=== PATIENT | male | born 1940 | race Caucasian/White ===

== ENCOUNTER 2016-12-07 17:27 | Inpatient (IN) | payer MEDICARE, MEDICAID ==
[~2016-12-07] VITALS: Ht 180.3 cm; Wt 110.7 kg
--- NOTE | 2016-12-07 17:40 | NUR ---
pt unable to give the list of medication, computer analyst supervisor and michael at intake do not have any report on the med list either.
--- NOTE | 2016-12-07 17:57 | NUR ---
called caregiver tali sumner at [phone] to get the medication list. no one picked up the phone. left message with hospital phone number.
[2016-12-07 18:09] LABS: BASOPHILS % (AUTO) 0.7 % (0.0-2.0); EOSINOPHILS # (AUTO) 0.1 K/uL (0.0-0.7); EOSINOPHILS % (AUTO) 0.9 % (0.0-7.0); HEMATOCRIT 39.6 % (40.0-50.0); HEMOGLOBIN 13.3 g/dL (14.0-18.0); LYMPHOCYTES # (AUTO) 0.8 K/uL (0.8-4.8); LYMPHOCYTES % (AUTO) 13.2 % (20.5-51.5); MEAN CORPUSCULAR HGB CONC 34 g/dL (32.0-37.0); MEAN CORPUSCULAR VOLUME 80.5 fL (82.0-92.0); MONOCYTES # (AUTO) 0.4 K/uL (0.1-1.30); MONOCYTES % (AUTO) 5.9 % (0.0-11.0); NEUTROPHILS # (AUTO) 5.1 K/uL (1.8-8.9); NEUTROPHILS % (AUTO) 79.3 % (38.5-71.5); PLATELET COUNT (AUTO) 203 K/uL (150-450); RED BLOOD CELL COUNT(AUTO) 4.92 MIL/uL (4.70-6.10); RED CELL DISTRIBUTION WIDTH 13.3 % (11.5-14.5); WHITE BLOOD COUNT (AUTO) 6.4 K/uL (4.0-11.2)
[2016-12-07 18:12] LABS: *BILIRUBIN,URIN NEGATIVE (NEGATIVE); *BLOOD, URINE NEGATIVE (NEGATIVE); *CLARITY,URINE CLEAR (CLEAR); *COLOR,URINE YELLOW (YELLOW); *KETONES,URINE TRACE (NEGATIVE); *PROTEIN,URINE TRACE (NEGATIVE); NITRITE, URINE NEGATIVE (NEGATIVE); UGLUCOSE NEGATIVE (NEGATIVE)
[2016-12-07 18:14] LABS: CALCIUM 8.8 mg/dL (8.5-10.1); CARBON DIOXIDE 32 mmol/L (21-32); CHLORIDE 103 mmol/L (98-107); CREATININE 1.1 mg/dL (0.6-1.3); GLUCOSE 113 mg/dL (74-106); POTASSIUM 3.7 mmol/L (3.5-5.1); SODIUM SERUM 142 mmol/L (136-145); UREA NITROGEN, BLOOD 21 mg/dL (7-18)
[2016-12-07 18:15] LABS: ETHANOL < 3 MG/DL (0-0)
[2016-12-07 18:20] LABS: *AMPHETAMINE, URINE NEGATIVE (NEGATIVE); *BARBITURATE, URINE NEGATIVE (NEGATIVE); *CANNABINOID, URINE NEGATIVE (NEGATIVE); *COCCAINE, URINE NEGATIVE (NEGATIVE); *OPIATE, URINE NEGATIVE (NEGATIVE); *PHENCYCLIDINE SCREEN,URINE NEGATIVE (NEGATIVE)
[2016-12-07 18:21] LABS: TROPONIN I < 0.017 ng/mL (0.00-0.056)
[2016-12-07 18:31] LABS: ALANINE AMINOTRANSFERASE 33 U/L (16-63); ALBUMIN 3.4 g/dL (3.4-5.0); ALKALINE PHOSPHATASE 105 U/L (50-136); ASPARTATE AMINOTRANSFERASE 21 U/L (15-37); BILIRUBIN,DIRECT < 0.1 mg/dL (0.0-0.2); BILIRUBIN,TOTAL 0.3 mg/dL (0.2-1.0); TOTAL PROTEIN, SERUM 7.3 g/dL (6.4-8.2)
[2016-12-07 18:31] LABS: LEUKOCYTE ESTERASE ,URINE TRACE (NEGATIVE)
[2016-12-07 18:32] LABS: ACETAMINOPHEN < 2.0 ug/mL (10-30)
[2016-12-07 18:33] LABS: MUCUS,URINE MODERATE /LPF (0-FEW); RBC,URINE 0-3 /HPF (0-3)
[2016-12-07 18:44] LABS: AMMONIA 10 umol/L (11-32)
[2016-12-07 18:51] LABS: LACTIC ACID 1.1 mmol/L (0.4-2.0)
[2016-12-07 19:11] LABS: THYROID STIMULATING HORMONE 2.698 mIU/mL (0.358-3.740)
--- NOTE | 2016-12-07 19:30 | NUR ---
Pt. admitted to [facility], under care of Dr. Jesus Belongs List completed
[2016-12-07 19:53] VITALS: BP 172/80
[2016-12-07 20:00] VITALS: BP 172/80
[2016-12-07] MEDS ORDERED: LORAZEPAM 1 MG TABLET PO PRN (20:15)
[2016-12-07] MEDS ORDERED: MAGNESIUM HYDROXIDE 30 ML LIQUID UDC PO PRN (20:15)
[2016-12-07] MEDS ORDERED: ACETAMINOPHEN 325 MG TABLET PO PRN (20:15)
[2016-12-07] MEDS ORDERED: MAG HYDROX/AL HYDROX/SIMETH 30 ML LIQUID UDC PO PRN (20:15)
[2016-12-07] MEDS ORDERED: TEMAZEPAM 7.5 MG CAPSULE PO PRN (20:15)
[2016-12-07 20:26] VITALS: BP 172/80
--- NOTE | 2016-12-07 21:00 | NUR ---
GPS: 76 YEAR MALE ADMITTED TO MHU ROOM 137B FROM ER. DX 5150/GD. A/O X3 AMBULATORY CALM AND COOPERATIVE. B/P 172/80 PULSE 81 RESP 18 SAT 93 % IN ROOM AIR. NOTIFIED VIA PHONE. RECEIVED ORDER FOR METOPROLOL 25 MG AND HYDROCHLOROTHIAZIDE 12.5 MG PO@ 22:30 PM. MEDICATION GIVEN ORDERED.PATIENT STATED I AM HEAR TO CHECKOUT FBI. PATIENT IS PARANOID TALKING TO HIM GAYATHRI. BROTHER CAME WITH PATIENT AND PROVIDED INFORMATION. CONTINUE MONITORING FOR SAFETY.RECHECK B/P 165/85 PULSE 80. CONTINUE PLAN OF CARE.
[2016-12-07 21:38] VITALS: BP 165/84
[2016-12-07] MEDS: risperiDONE 1 MG TABLET PO SCH (22:13)
[2016-12-07] MEDS ORDERED: risperiDONE 1 MG TABLET ONE (22:14)
--- NOTE | 2016-12-07 22:15 | NUR ---
GPS: PATIENT C/O ANXIETY.ATIVAN 1 MG PO GIVEN PER PATIENT REQUESTED.
[2016-12-07] MEDS ORDERED: HYDROCHLOROTHIAZIDE 12.5 MG CAPSULE ONE (22:24)
[2016-12-07] MEDS ORDERED: METOPROLOL TARTRATE 25 MG TABLET ONE (22:25)
[2016-12-07] MEDS: HYDROCHLOROTHIAZIDE 12.5 MG CAPSULE PO SCH (22:31)
[2016-12-07] MEDS: METOPROLOL TARTRATE 25 MG TABLET PO SCH (22:32)
--- NOTE | 2016-12-07 23:15 | NUR ---
GPS: PATIENT STATED I AM FEELING BETTER NOW. PRN EFFECTIVE FOR ANXIETY.
[2016-12-07 23:30] VITALS: BP 138/77
--- NOTE | 2016-12-07 23:30 | NUR ---
GPS: PATIENT B/P NOW 138/78. METOPROLOL EFFECTIVE.
--- NOTE | 2016-12-08 06:44 | NUR ---
GPS: REMAIN CALM AND COOPERATIVE. SLEPT 8 HRS THROUGH THE NIGHT.NO BEHAVIOR PROBLEM NOTED.RESTING IN BED COMFORTABLY.
[2016-12-08 07:30] VITALS: BP 168/93
[2016-12-08] MEDS: risperiDONE 1 MG TABLET PO SCH ×2 (08:38→20:21)
[2016-12-08] MEDS: METOPROLOL TARTRATE 25 MG TABLET PO SCH ×2 (08:38→20:21)
[2016-12-08] MEDS: HYDROCHLOROTHIAZIDE 12.5 MG CAPSULE PO SCH ×2 (09:30→22:26)
[2016-12-08 16:00] VITALS: BP 157/87
[2016-12-08] MEDS ORDERED: AMLODIPINE 5 MG TABLET PO SCH (17:45)
[2016-12-08] MEDS ORDERED: AMLODIPINE 2.5 MG TABLET PO PRN (18:15)
[2016-12-08 20:00] VITALS: BP 160/88
[2016-12-08] MEDS: ATORVASTATIN 10 MG TABLET PO SCH (20:21)
[2016-12-08 21:30] VITALS: BP 143/95
[2016-12-09 04:00] VITALS: BP 141/89
--- NOTE | 2016-12-09 06:37 | NUR ---
GPS: REMAIN CALM AND COOPERATIVE. SLEPT 8 HRS THROUGH THE NIGHT. NO AGITATION NOTED THIS TIME.NO C/O PAIN OR DISCOMFORT.CONTINUE PLAN OF CARE.
[2016-12-09] MEDS ORDERED: RISP1TAB7 PO (07:10)
[2016-12-09] MEDS ORDERED: MELA1TAB10 PO (07:10)
[2016-12-09] MEDS ORDERED: METO-302 PO (07:10)
[2016-12-09] MEDS ORDERED: IPRA12.9 INH (07:10)
[2016-12-09] MEDS ORDERED: AMLO10TA2 PO (07:10)
[2016-12-09 07:30] VITALS: BP 140/89
[2016-12-09] MEDS: risperiDONE 1 MG TABLET PO SCH ×2 (08:00→20:11)
[2016-12-09] MEDS: METOPROLOL TARTRATE 25 MG TABLET PO SCH (08:00)
[2016-12-09] MEDS: HYDROCHLOROTHIAZIDE 12.5 MG CAPSULE PO SCH ×2 (09:38→21:35)
[2016-12-09] MEDS ORDERED: IPRATROPIUM BROMIDE NASAL 15 ML BOTTLE 42 MCG/SPRAY NS SCH ×2 (12:00→13:00)
[2016-12-09] MEDS: AMLODIPINE 10 MG TABLET PO SCH (12:12)
[2016-12-09 14:31] VITALS: BP 118/58
[2016-12-09] MEDS: IPRATROPIUM BROMIDE 0.5 MG/2.5 ML NEBU NEB SCH ×2 (14:32→19:34)
[2016-12-09 16:00] VITALS: BP 130/73
[2016-12-09] MEDS: ATORVASTATIN 10 MG TABLET PO SCH (20:11)
[2016-12-09 21:12] VITALS: BP 145/74
[2016-12-10] MEDS: IPRATROPIUM BROMIDE 0.5 MG/2.5 ML NEBU NEB SCH ×4 (01:21→19:40)
[2016-12-10 07:30] VITALS: BP 147/78
[2016-12-10] MEDS: risperiDONE 1 MG TABLET PO SCH ×2 (08:25→20:13)
[2016-12-10] MEDS: FLUTICASONE PROP NASAL SPRAY 16 GM BOTTLE NS SCH (08:26)
[2016-12-10] MEDS: METOPROLOL SUCCINATE XL 25 MG TAB.SR.24H PO SCH (08:26)
[2016-12-10] MEDS: AMLODIPINE 10 MG TABLET PO SCH (08:26)
[2016-12-10] MEDS: HYDROCHLOROTHIAZIDE 12.5 MG CAPSULE PO SCH ×2 (09:30→22:20)
--- NOTE | 2016-12-10 11:35 | NUR ---
Initial discharge instructions:The patient resides at alone in a one-bedroom apartment [[address], [address]; [place] [address]]. Per patient, he would like to return home upon discharge. He does not appear to be open to a SNF placement. However, KARINE also spoke to the pts brother [Richard, ] and he does not believe pt is ready to return home. He refers to pts recent 5150 hold at [facility] and how he is on a 5150 hold again after being sent home. The brother believes pt would benefit from a SNF placement prior to going back home. KARINE will speak to MD, patient, and family regarding most appropriate discharge plan. KARINE will form a safe and proper discharge plan.
[2016-12-10 15:10] VITALS: BP 130/63
[2016-12-10] MEDS: ALBUTEROL SULFATE 2.5 MG/ 0.5 ML NEBU NEB PRN (19:40)
[2016-12-10] MEDS: ATORVASTATIN 10 MG TABLET PO SCH (20:13)
[2016-12-10 20:15] VITALS: BP 123/69
[2016-12-11] MEDS: ALBUTEROL SULFATE 2.5 MG/ 0.5 ML NEBU NEB PRN ×2 (01:03→15:39)
[2016-12-11] MEDS: IPRATROPIUM BROMIDE 0.5 MG/2.5 ML NEBU NEB SCH ×4 (01:03→19:16)
[2016-12-11 07:30] VITALS: BP 102/52
[2016-12-11] MEDS: AMLODIPINE 10 MG TABLET PO SCH (07:52)
[2016-12-11] MEDS: METOPROLOL SUCCINATE XL 25 MG TAB.SR.24H PO SCH (07:54)
[2016-12-11] MEDS: risperiDONE 2 MG TABLET PO SCH ×2 (08:11→20:09)
[2016-12-11] MEDS: FLUTICASONE PROP NASAL SPRAY 16 GM BOTTLE NS SCH (08:22)
[2016-12-11] MEDS ORDERED: risperiDONE 1 MG TABLET PO SCH (09:00)
[2016-12-11 10:47] VITALS: BP 137/81
[2016-12-11] MEDS: HYDROCHLOROTHIAZIDE 12.5 MG CAPSULE PO SCH ×2 (10:51→21:42)
[2016-12-11 15:28] VITALS: BP 101/54
[2016-12-11 19:55] VITALS: BP 128/72
[2016-12-11] MEDS: ATORVASTATIN 10 MG TABLET PO SCH (20:09)
--- NOTE | 2016-12-11 21:30 | NUR ---
GPS: Pt.refused to have his C-Pap machine at this time. Risks vs benefits explained x3. Denies any SOB at this time. In no acute resp.distress noted. Monitored closely.
[2016-12-12] MEDS: IPRATROPIUM BROMIDE 0.5 MG/2.5 ML NEBU NEB SCH ×4 (01:30→18:54)
[2016-12-12 07:30] VITALS: BP 146/81
[2016-12-12] MEDS: HYDROCHLOROTHIAZIDE 12.5 MG CAPSULE PO SCH ×2 (08:35→21:26)
[2016-12-12] MEDS: AMLODIPINE 10 MG TABLET PO SCH (08:36)
[2016-12-12] MEDS: METOPROLOL SUCCINATE XL 25 MG TAB.SR.24H PO SCH (08:36)
[2016-12-12] MEDS: risperiDONE 2 MG TABLET PO SCH ×2 (08:36→20:14)
[2016-12-12] MEDS: FLUTICASONE PROP NASAL SPRAY 16 GM BOTTLE NS SCH ×2 (08:37→08:41)
--- NOTE | 2016-12-12 11:59 | NUR ---
WEEKLY MEETING: TOLERATING CURRENT DIET,EATING 100% OF MEALS,BM X1 PRESENT,SKIN INTACT NO WT CHANGES NOTICE LABS: 12/08 LDL-137,CHOLESTEROL-207 ON LIPITOR NO NUTRITION DIAGNOSIS AT THIS TIME MONITOR:PO INTAKE,WT,NEW LABS Addendum: 12/12/16 at [address] Amended: Links added.
[2016-12-12 13:00] VITALS: BP 123/65
--- NOTE | 2016-12-12 13:01 | NUR ---
PT AT THIS TIME REFUSED BREATHING TX AT THIS TIME. PT HAS NO DISTRESS AND IS SLEEPING RESTING. PT STATED HE DO NOT WANT BREATHING TX AT THIS TIME. PT NURSE IS AWARE.
[2016-12-12 20:01] VITALS: BP 125/68
[2016-12-12] MEDS: ATORVASTATIN 10 MG TABLET PO SCH (20:14)
[2016-12-12] MEDS: FLUVOXAMINE MALEATE 25 MG TABLET PO SCH (21:25)
[2016-12-13] MEDS: IPRATROPIUM BROMIDE 0.5 MG/2.5 ML NEBU NEB SCH ×4 (00:57→18:39)
--- NOTE | 2016-12-13 00:57 | NUR ---
Pt asleep. No SOB noted. HHN tx not given. Charge nurse notified.
--- NOTE | 2016-12-13 01:00 | NUR ---
GPS: Pt.asleep at this time without any resp.problems noted. Refused to use his C-Pap machine again despite explanation of importance. Closely monitored.
--- NOTE | 2016-12-13 06:44 | NUR ---
GPS: Pt.slept about 8 1/2 hours last night. No SOB/breathing problems noted. In no form of distress noted.
[2016-12-13 07:30] VITALS: BP 152/70
--- NOTE | 2016-12-13 08:00 | NUR ---
PT AT THIS TIME REFUSED TX. RN HARSHAL AWARE. PT HAS NO DISTRESS NOR SOB NOTED WILL CONTINUE TO MONITOR PT THROUGHOUT SHIFT.
[2016-12-13] MEDS: FLUVOXAMINE MALEATE 25 MG TABLET PO SCH ×3 (08:58→17:53)
[2016-12-13] MEDS: risperiDONE 2 MG TABLET PO SCH ×2 (08:58→20:33)
[2016-12-13] MEDS: METOPROLOL SUCCINATE XL 25 MG TAB.SR.24H PO SCH (08:58)
[2016-12-13] MEDS: AMLODIPINE 10 MG TABLET PO SCH (08:59)
[2016-12-13] MEDS: FLUTICASONE PROP NASAL SPRAY 16 GM BOTTLE NS SCH (09:00)
[2016-12-13] MEDS: HYDROCHLOROTHIAZIDE 12.5 MG CAPSULE PO SCH ×2 (09:26→22:27)
--- NOTE | 2016-12-13 14:39 | NUR ---
Roll Plugger Machine Operator: KARINE called the [facility] today and spoke with Benny, who stated the patient is scheduled for his writ tomorrow, 12/14/16 at 8:30 am at [[address] [place] [id number]]. The patient must report to department [address] on the 4th floor. The writ case number is [#[id number]]. Per Benny, if there are any issues (patient is refusing to attend, transportation issues, etc.), then the judicial secretary specialist must be notified immediately [Rashad: ]. [employer] [Contact: Hernan ] will grape picker the patient on Saturday12/14/16 at 6:30 am and transport him [facility]. Patient gave verbal consent for his brother to be provided with court time/date/location, and stated he may attend. KARINE called the patient's brother, Richard [phone] and left him a voicemail informing him of the court date and time. KARINE notified of the court date and time as well.
--- NOTE | 2016-12-13 14:59 | NUR ---
Aerial Lineman: Patient was accepted to [facility] for placement.
[2016-12-13 15:51] VITALS: BP 136/71
--- NOTE | 2016-12-13 18:39 | NUR ---
Pt refused breathing tx. No respiratory distress noted. Nurse aware.
[2016-12-13] MEDS: ATORVASTATIN 10 MG TABLET PO SCH (20:33)
[2016-12-13 20:36] VITALS: BP 143/75
[2016-12-14] MEDS: IPRATROPIUM BROMIDE 0.5 MG/2.5 ML NEBU NEB SCH ×4 (01:30→18:41)
--- NOTE | 2016-12-14 01:56 | NUR ---
No sob noted. HHN tx not given. Charge nurse notified.
--- NOTE | 2016-12-14 06:37 | NUR ---
GPS: Remain calm and cooperative with meds and care.no behavior problem noted.slept 8:30 hrs through the night. continue plan of care.
--- NOTE | 2016-12-14 08:13 | NUR ---
0700 Patient went to [facility] Court for Writ hearing accompanied by staff via [employer] in stable condition.
[2016-12-14] MEDS: FLUVOXAMINE MALEATE 25 MG TABLET PO SCH ×3 (09:00→17:19)
--- NOTE | 2016-12-14 13:26 | NUR ---
[address] back from the court via [employer], alert and ox3, quiet and ambulatory . Respiratin even and unlabored, no s/s acute distress. Denies s/s pain. Lunch served, patient eating. V/s checked prior med administration.
[2016-12-14] MEDS: risperiDONE 2 MG TABLET PO SCH ×2 (13:33→20:21)
[2016-12-14] MEDS: HYDROCHLOROTHIAZIDE 12.5 MG CAPSULE PO SCH ×2 (13:36→22:46)
[2016-12-14] MEDS: FLUTICASONE PROP NASAL SPRAY 16 GM BOTTLE NS SCH (13:45)
[2016-12-14] MEDS: METOPROLOL SUCCINATE XL 25 MG TAB.SR.24H PO SCH (13:47)
[2016-12-14] MEDS: AMLODIPINE 10 MG TABLET PO SCH (13:51)
[2016-12-14 15:25] VITALS: BP 115/60
--- NOTE | 2016-12-14 18:41 | NUR ---
Pt awake. No respiratory distress noted. Pt refused HHN tx. O2 SAT-97% on room air. Nurse notified.
[2016-12-14 20:17] VITALS: BP 126/56
[2016-12-14] MEDS: ATORVASTATIN 10 MG TABLET PO SCH (20:21)
[2016-12-15] MEDS: IPRATROPIUM BROMIDE 0.5 MG/2.5 ML NEBU NEB SCH ×5 (01:30→19:09)
--- NOTE | 2016-12-15 01:32 | NUR ---
Pt asleep. No sob noted. HHN tx not given. Charge nurse notified.
[2016-12-15 07:30] VITALS: BP 129/74
[2016-12-15] MEDS: risperiDONE 1 MG TABLET PO SCH ×2 (08:44→20:13)
[2016-12-15] MEDS: AMLODIPINE 10 MG TABLET PO SCH (08:45)
[2016-12-15] MEDS: METOPROLOL SUCCINATE XL 25 MG TAB.SR.24H PO SCH (08:45)
[2016-12-15] MEDS: FLUVOXAMINE MALEATE 25 MG TABLET PO SCH ×3 (08:46→17:52)
[2016-12-15] MEDS: FLUTICASONE PROP NASAL SPRAY 16 GM BOTTLE NS SCH (08:46)
[2016-12-15] MEDS: HYDROCHLOROTHIAZIDE 12.5 MG CAPSULE PO SCH ×2 (10:34→21:53)
[2016-12-15 15:05] VITALS: BP 93/46
[2016-12-15] MEDS: ATORVASTATIN 10 MG TABLET PO SCH (20:13)
[2016-12-15 20:25] VITALS: BP 136/66
[2016-12-16] MEDS: IPRATROPIUM BROMIDE 0.5 MG/2.5 ML NEBU NEB SCH ×4 (01:30→18:54)
[2016-12-16 07:30] VITALS: BP 106/60
[2016-12-16] MEDS: risperiDONE 1 MG TABLET PO SCH ×2 (08:08→20:16)
[2016-12-16] MEDS: FLUVOXAMINE MALEATE 25 MG TABLET PO SCH ×3 (08:08→16:40)
[2016-12-16 08:14] LABS: BASOPHILS % (AUTO) 0.3 % (0.0-2.0); EOSINOPHILS # (AUTO) 0.1 K/uL (0.0-0.7); EOSINOPHILS % (AUTO) 1.6 % (0.0-7.0); HEMATOCRIT 35.4 % (40.0-50.0); LYMPHOCYTES % (AUTO) 17.8 % (20.5-51.5); MEAN CORPUSCULAR HEMOGLOBIN 27.3 uug (27.0-31.0); MEAN CORPUSCULAR HGB CONC 34 g/dL (32.0-37.0); MEAN CORPUSCULAR VOLUME 80.2 fL (82.0-92.0); MONOCYTES # (AUTO) 0.4 K/uL (0.1-1.30); MONOCYTES % (AUTO) 7.1 % (0.0-11.0); NEUTROPHILS # (AUTO) 4.1 K/uL (1.8-8.9); NEUTROPHILS % (AUTO) 73.2 % (38.5-71.5); PLATELET COUNT (AUTO) 191 K/uL (150-450); WHITE BLOOD COUNT (AUTO) 5.6 K/uL (4.0-11.2)
[2016-12-16 08:23] LABS: BILIRUBIN,TOTAL 0.3 mg/dL (0.2-1.0); CALCIUM 8.5 mg/dL (8.5-10.1); CREATININE 1.2 mg/dL (0.6-1.3); MAGNESIUM 1.9 mg/dL (1.8-2.4); PHOSPHOROUS 4.3 mg/dL (2.5-4.9); POTASSIUM 3.5 mmol/L (3.5-5.1); TOTAL PROTEIN, SERUM 6.6 g/dL (6.4-8.2)
[2016-12-16 08:25] LABS: RED BLOOD CELL COUNT(AUTO) 4.41 MIL/uL (4.70-6.10)
[2016-12-16] MEDS: FLUTICASONE PROP NASAL SPRAY 16 GM BOTTLE NS SCH (09:00)
[2016-12-16] MEDS: METOPROLOL SUCCINATE XL 25 MG TAB.SR.24H PO SCH (09:00)
[2016-12-16] MEDS: AMLODIPINE 10 MG TABLET PO SCH (09:00)
[2016-12-16] MEDS: HYDROCHLOROTHIAZIDE 12.5 MG CAPSULE PO SCH ×2 (09:06→22:23)
[2016-12-16 15:12] VITALS: BP 145/60
[2016-12-16 19:50] VITALS: BP 153/75
[2016-12-16] MEDS: ATORVASTATIN 10 MG TABLET PO SCH (20:16)
[2016-12-16 22:28] VITALS: BP 122/67
[2016-12-17] MEDS: IPRATROPIUM BROMIDE 0.5 MG/2.5 ML NEBU NEB SCH ×4 (01:15→18:59)
--- NOTE | 2016-12-17 06:37 | NUR ---
NURSING ENTRY.PT SLEPT FOR 8 HRS WITH NO BEHAVIORAL ISSUES.STILL CONTINUE TO MONITOR FOR ANY RESP.DISTRESS.
[2016-12-17 07:49] VITALS: BP 149/87
[2016-12-17] MEDS: risperiDONE 1 MG TABLET PO SCH ×2 (08:32→20:21)
[2016-12-17] MEDS: AMLODIPINE 10 MG TABLET PO SCH (08:32)
[2016-12-17] MEDS: FLUVOXAMINE MALEATE 25 MG TABLET PO SCH ×3 (08:32→17:09)
[2016-12-17] MEDS: FLUTICASONE PROP NASAL SPRAY 16 GM BOTTLE NS SCH (08:33)
[2016-12-17] MEDS: METOPROLOL SUCCINATE XL 25 MG TAB.SR.24H PO SCH (08:33)
[2016-12-17] MEDS: HYDROCHLOROTHIAZIDE 12.5 MG CAPSULE PO SCH ×2 (09:33→22:44)
[2016-12-17 15:44] VITALS: BP 124/63
--- NOTE | 2016-12-17 20:00 | NUR ---
PT RECEIVED IN THE DAY ROOM, A/O X2, WITHDRAWN TO GAYATHRI, STILL DELUSIONAL, ABOUT FBI, REALITY ORIENTATION PROVIDED, TOOK ALL HS MEDS ORDERED, WILL CONTINUE TO MONITOR CLOSELY.
[2016-12-17 20:18] VITALS: BP 140/68
[2016-12-17] MEDS: ATORVASTATIN 10 MG TABLET PO SCH (20:21)
[2016-12-18] MEDS: IPRATROPIUM BROMIDE 0.5 MG/2.5 ML NEBU NEB SCH ×4 (01:30→19:30)
--- NOTE | 2016-12-18 01:50 | NUR ---
Pt asleep. No sob noted. HHN tx not given. Nurse Hector gonzalez.
[2016-12-18 07:53] VITALS: BP 108/54
[2016-12-18] MEDS: FLUVOXAMINE MALEATE 25 MG TABLET PO SCH ×2 (08:17→13:23)
[2016-12-18] MEDS: AMLODIPINE 10 MG TABLET PO SCH ×2 (08:18→15:32)
[2016-12-18] MEDS: FLUTICASONE PROP NASAL SPRAY 16 GM BOTTLE NS SCH (08:18)
[2016-12-18] MEDS: risperiDONE 1 MG TABLET PO SCH ×2 (08:18→20:04)
[2016-12-18] MEDS: METOPROLOL SUCCINATE XL 25 MG TAB.SR.24H PO SCH ×2 (08:19→15:32)
[2016-12-18] MEDS: HYDROCHLOROTHIAZIDE 12.5 MG CAPSULE PO SCH ×2 (09:52→21:18)
[2016-12-18 15:28] VITALS: BP 152/78
--- NOTE | 2016-12-18 19:38 | NUR ---
Pt awake. No resp. distress noted. HHN tx not given. Charge nurse notified.
[2016-12-18] MEDS ORDERED: BENZOCAINE/MENTH/CETYLPYRD LOZENGE MM PRN (19:45)
[2016-12-18] MEDS: ATORVASTATIN 10 MG TABLET PO SCH (20:04)
[2016-12-18 20:06] VITALS: BP 141/73
[2016-12-18] MEDS ORDERED: FLUVOXAMINE MALEATE 50 MG TABLET PO SCH (21:00)
[2016-12-19] MEDS: IPRATROPIUM BROMIDE 0.5 MG/2.5 ML NEBU NEB SCH ×3 (01:08→13:30)
--- NOTE | 2016-12-19 01:09 | NUR ---
Pt asleep. No sob noted. HHN tx not given. Charge nurse aware.
[2016-12-19 07:30] VITALS: BP 147/68
[2016-12-19] MEDS: risperiDONE 1 MG TABLET PO SCH (08:15)
[2016-12-19] MEDS: FLUVOXAMINE MALEATE 25 MG TABLET PO SCH ×2 (08:17→12:22)
[2016-12-19] MEDS: AMLODIPINE 10 MG TABLET PO SCH (08:17)
[2016-12-19 08:23] VITALS: BP 147/68
[2016-12-19] MEDS: METOPROLOL SUCCINATE XL 25 MG TAB.SR.24H PO SCH (08:23)
[2016-12-19] MEDS: FLUTICASONE PROP NASAL SPRAY 16 GM BOTTLE NS SCH (09:00)
[2016-12-19] MEDS: HYDROCHLOROTHIAZIDE 12.5 MG CAPSULE PO SCH (09:51)
--- NOTE | 2016-12-19 10:23 | NUR ---
DC Note: The Patient will be discharged back home [[address], [place], [address]] via taxi at 1:00 pm. Patient will be provided with a taxi voucher. Patient is aware and agreeable with discharge plans. Spoke with patient's brother, Richard [phone] who is aware and agreeable with discharge plans. Per Richard, the patient has a caregiver, and he will inform him the patient is returning home today. Patient denied SNF placement at [facility] and [facility]. Patient will follow-up with Dr.Christina Chopra (Psychiatrist) [[address], [place] [address]; ] and (Sanding Machine Tender Automatic)[[address], [place] [address]; . An order for Home Health was faxed to [facility] [ / Fx: [phone]] for medication management. For smoking cessation, patient was referred to [employer] 800-LUNGUSA and [employer] [phone].
--- NOTE | 2016-12-19 12:43 | NUR ---
GPS.RN- Contacted patients pharmacy [facility] in [place] [phone]. spoke with pharmicist maryann Mclaughlin called in.
--- NOTE | 2016-12-19 14:34 | NUR ---
1000 patient aware that he is gong home today via taxi voucher. patient alert and ox3, denies suicidal thought/ denies homicidal ideations. No delusions / no av hallucinations noted. All prescription called by charge nurse to patient pharmacy. 1310 Discharge instructions given to the patient regarding his medications to continue at home and informed that all prescriptions already called to his pharmacy, patient verbalized understanding . All valuables rturned and signed by the patient.1325 Patient picked up by taxi and went home calm, denies SI/ denies homicidal ideation. No halucintions/ no delusions observed.
== END 2016-12-19 13:25 | disposition home health service (06) | DRG 885 ==
LOC: ER 17:27 → GPS 19:22
PROVIDERS: ADMIT Psychiatry & Neurology Psychiatry; ATTEND Internal Medicine
DX: F20.0 Paranoid schizophrenia (principal); I11.0 Hypertensive heart disease with heart failure; E44.0 Moderate protein-calorie malnutrition; K92.2 Gastrointestinal hemorrhage, unspecified; D68.59 Other primary thrombophilia; I50.9 Heart failure, unspecified; F32.9 Major depressive disorder, single episode, unspecified; J44.9 Chronic obstructive pulmonary disease, unspecified; I16.0 Hypertensive urgency; D50.9 Iron deficiency anemia, unspecified; E66.01 Morbid (severe) obesity due to excess calories; E78.5 Hyperlipidemia, unspecified; G47.00 Insomnia, unspecified; G47.30 Sleep apnea, unspecified; Z87.891 Personal history of nicotine dependence; R73.03 Prediabetes; Z68.34 Body mass index [BMI] 34.0-34.9, adult; D53.9 Nutritional anemia, unspecified
CPT/HCPCS: 36415; 70030-TC; 70450; 71010; 73560; 73620; 80307; 83605; 83735; 84100; 84443; 85025; 85730; 87040; 87086; 93005; 94640; 94664; A4663; G0480-TC; G6040-TC; J3535; J3590